=== PATIENT | female | born 1985 | race Asian ===

== ENCOUNTER 2016-07-19 13:07 | Emergency (ER) | payer OTHER ==
[~2016-07-19] VITALS: Wt 70.0 kg
[2016-07-19 15:58] LABS: BASOPHIL # 0.1 10^3/ul (0.0-0.1); BASOPHILS % 0.5 % (0.0-2.0); EOSINOPHILS # 0.1 10^3/ul (0.0-0.5); EOSINOPHILS % 0.6 % (0.0-7.0); HEMATOCRIT 43.6 % (37.0-47.0); HEMOGLOBIN 14.6 g/dl (12.0-16.0); LYMPHOCYTES # 2.1 10^3/ul (0.8-2.9); LYMPHOCYTES % 18.1 % (15.0-51.0); MEAN CORPUSCULAR HEMOGLOBIN 31.2 pg (29.0-33.0); MEAN CORPUSCULAR HGB CONC 33.6 g/dl (32.0-37.0); MEAN CORPUSCULAR VOLUME 92.8 fl (82.0-101.0); MONOCYTE # 0.7 10^3/ul (0.3-0.9); MONOCYTES % 5.9 % (0.0-11.0); NEUTROPHIL # 8.7 10^3/ul (1.6-7.5); NEUTROPHILS % 74.9 % (39.0-77.0); PLATELET COUNT 283 10^3/UL (140-440); RED CELL DISTRIBUTION WIDTH 12.6 % (11.5-14.5); UNCORRECTED WBC 11.7 10^3/ul (4.8-10.8); WHITE BLOOD COUNT 11.7 10^3/ul (4.8-10.8)
[2016-07-19 16:09] LABS: ALBUMIN 4.6 g/dl (3.3-4.9)
[2016-07-19 16:12] LABS: ALBUMIN/GLOBULIN RATIO 1.17; BILIRUBIN,INDIRECT 0.2 mg/dl (0-1.1); BILIRUBIN,TOTAL 0.2 mg/dl (0.2-1.3); CREATININE 0.72 mg/dl (0.44-1.00); TOTAL PROTEIN 8.5 g/dl (6.1-8.1)
[2016-07-19 16:13] LABS: CALCIUM 9.3 mg/dl (8.4-10.2)
[2016-07-19 16:16] LABS: CONDITION 1
[2016-07-19 16:30] LABS: ADD UMIC YES; URINE BILIRUBIN (Dip) NEGATIVE (NEGATIVE); URINE BLOOD (Dip) 3+ (NEGATIVE); URINE GLUCOSE (Dip) NEGATIVE (NEGATIVE); URINE KETONES (Dip) NEGATIVE (NEGATIVE); URINE LEUKOCYTE ESTERASE (Dip) 2+ (NEGATIVE); URINE NITRITE (Dip) NEGATIVE (NEGATIVE); URINE TOTAL PROTEIN (Dip) 2+ (NEGATIVE); URINE UROBILINOGEN (Dip) 0.2 E.U./dL (0.1-1.0)
--- NOTE | 2016-07-19 16:39 | RADRPT ---
PROCEDURE: US OB. CLINICAL INDICATION: Vaginal bleeding and 31-year-old female. Positive test. TECHNIQUE: Transabdominal and transvaginal views of the pelvis are available for review. COMPARISON: No. FINDINGS: Uterus measured 6.96 cm sagittal by 4 cm AP by 4.4 cm transverse. Endometrial thickness is 1 cm. No intrauterine gestation or remnants are identified. There is a 5.35 mm Nabothian cyst on the c ervix. No free fluid is noted in the cul-de-sac. The right ovary measures 2.1 x 1 x 1.2 cm. The left ovary measures 3.2 x 1.6 x 2.1 cm. There is a 1 .5 by 1.6 by 1.2 cm mass in the left ovary. This could be the result of a corpus luteal cyst of pre gnancy. No free intraperitoneal fluid is identified. There is normal blood flow to the right and left ovarie s. IMPRESSION: 1. No intrauterine gestation is identified. Differential diagnosis includes an retained products o f conception, incomplete , early IUP an ectopic . When no IUP is demonstrated, correlation with serial beta HCG is recommended. With a quantitative beta HCG >2000, the differential diagnosis includes spontaneous or ecto pic . Therefore, clinical follow-up is recommended including correlation with serial quant itative beta HCG levels and repeat sonogram with rising levels and/or/or localized or persistent josselyn n. With quantitative beta HCG < 2000, the differential diagnosis includes early normal IVP or spontaneo us or ectopic . Therefore, clinical follow-up is recommended including correlatio n with serial quantitative beta HCG levels and arising levels and / or persistent pain. 2. 1.5 x 1.6 x 1.2 cm complex mass in the left ovary. A corpus luteal cyst of might pres ent this fashion. Follow-up imaging is recommended to ensure this resolves. 3. Findings were phoned to the emergency room to Dr. Jeremy Mosqueda. Physician Oscar Date Time Electronically viewed and signed by Enoch Hutchison Physician on 07/19/2016 16:39 FARHAT
[2016-07-19 16:48] LABS: URINE COLOR RED (YELLOW)
[2016-07-19 16:54] LABS: URINE RBCS >200 /HPF (0)
[2016-07-19 16:55] LABS: BACTERIA,URINE FEW; SQUAMOUS EPITHELIAL CELL,UR FEW
[2016-07-19] MEDS ORDERED: NITR-58 PO (17:12)
[2016-07-19 17:49] VITALS: BP 128/76; PULSE 60; RESP 18; TEMP 98.9
--- NOTE | 2016-07-19 18:20 | ERD ---
ER Documentation Chief Complaint Date/Time DATE: 07/19/16 TIME: 18:18 Chief Complaint VAG BLEED 13 WEEKS HPI Patient is a 31-year-old female with no medical problems who presents with vaginal bleeding. Her symptoms started early this week with brown discharge but then became bright red and today the bleeding was worse. She says that she is about 6 weeks . She is a . She has lower abdominal cramping which he says feels like a period. She does not know the name of her primary doctor but her OB doctor is Dr. Mari she has an appointment scheduled on Thursday. ROS All systems reviewed and are negative except as per history of present illness. Medications Home Meds Active Scripts Nitrofurantoin Monohyd Macrocr* (Macrobid*) 100 Mg Capsr, 100 MG PO BID for 7 Days, CAP Prov:HERON LIMA MD 07/19/16 Allergies Allergies: Coded Allergies: No Known Allergy (Unverified , 07/19/16) PMhx/Soc Medical and Surgical Hx: pt denies Medical Hx, pt denies Surgical Hx History of Surgery: No Anesthesia Reaction: No Hx Neurological Disorder: No Hx Respiratory Disorders: No Hx Cardiac Disorders: No Hx Psychiatric Problems: No Hx Miscellaneous Medical Probl: No Hx Alcohol Use: No Hx Substance Use: No Hx Tobacco Use: No Smoking Status: Never smoker FmHx Family History: No diabetes Physical Exam Vitals Vital Signs Date Time Temp Pulse Resp B/P Pulse Ox O2 Delivery O2 Flow Rate FiO2 07/19/16 17:49 98.9 60 18 128/76 100 Room Air 07/19/16 13:19 98.0 71 18 133/71 99 Physical Exam Const: No acute distress Head: Atraumatic Eyes: Normal Conjunctiva ENT: Normal External Ears, Nose and Mouth. Neck: Full range of motion..~ No meningismus. Resp: Clear to auscultation bilaterally Cardio: Regular rate and rhythm, no murmurs Abd: Soft, non tender, non distended. Normal bowel sounds Skin: No petechiae or rashes Back: No midline or flank tenderness Ext: No cyanosis, or edema Neur: Awake and alert Psych: Normal Mood and Affect Result Diagram: 07/19/16 1533 07/19/16 1533 Results 24 hrs Laboratory Tests Test 07/19/16 15:33 07/19/16 15:42 Alanine Aminotransferase (ALT/SGPT) 24IU/L Albumin 4.6g/dl Albumin/Globulin Ratio 1.17 Alkaline Phosphatase 100IU/L Anion Gap 18 Aspartate Amino Transf (AST/SGOT) 27IU/L Basophils # 0.110^3/ul Basophils % 0.5% Beta HCG, Quantitative 1574.3mIU/ml Blood Urea Nitrogen 15mg/dl Calcium Level 9.3mg/dl Carbon Dioxide Level 26mmol/L Chloride Level 101mmol/L Creatinine 0.72mg/dl Direct Bilirubin 0.00mg/dl Eosinophils # 0.110^3/ul Eosinophils % 0.6% Globulin 3.90g/dl Glucose Level 95mg/dl Hematocrit 43.6% Hemoglobin 14.6g/dl Indirect Bilirubin 0.2mg/dl Lymphocytes # 2.110^3/ul Lymphocytes % 18.1% Mean Corpuscular Hemoglobin 31.2pg Mean Corpuscular Hemoglobin Concent 33.6g/dl Mean Corpuscular Volume 92.8fl Mean Platelet Volume 8.0fl Monocytes # 0.710^3/ul Monocytes % 5.9% Neutrophils # 8.710^3/ul Neutrophils % 74.9% Nucleated Red Blood Cells # 0.010^3/ul Nucleated Red Blood Cells % 0.0/100WBC Platelet Count 01144^3/UL Potassium Level 4.0mmol/L Red Blood Count 4.7010^6/ul Red Cell Distribution Width 12.6% Sodium Level 141mmol/L Total Bilirubin 0.2mg/dl Total Protein 8.5g/dl White Blood Count 11.710^3/ul Urine Bacteria FEW Urine Bilirubin NEGATIVE Urine Clarity BLOODY Urine Color RED Urine Glucose NEGATIVE% Urine Hemoglobin 3+ Urine Ketones NEGATIVE Urine Leukocyte Esterase 2+ Urine Microscopic RBC >200/HPF Urine Microscopic WBC 10-25/HPF Urine Nitrite NEGATIVE Urine Specific [place] 1.010 Urine Squamous Epithelial Cells FEW Urine Total Protein 2+ Urine Urobilinogen 0.2 E.U./dL Urine pH 6.5 Procedures/MDM PROCEDURE: US OB. CLINICAL INDICATION: Vaginal bleeding and 31-year-old female. Positive test. TECHNIQUE: Transabdominal and transvaginal views of the pelvis are available for review. COMPARISON: No. FINDINGS: Uterus measured 6.96 cm sagittal by 4 cm AP by 4.4 cm transverse. Endometrial thickness is 1 cm. No intrauterine gestation or remnants are identified. There is a 5.35 mm Nabothian cyst on the cervix. No free fluid is noted in the cul-de-sac. The right ovary measures 2.1 x 1 x 1.2 cm. The left ovary measures 3.2 x 1.6 x 2.1 cm. There is a 1.5 by 1.6 by 1.2 cm mass in the left ovary. This could be the result of a corpus luteal cyst of . No free intraperitoneal fluid is identified. There is normal blood flow to the right and left ovaries. IMPRESSION: 1. No intrauterine gestation is identified. Differential diagnosis includes an retained products of conception, incomplete , early IUP an ectopic . When no IUP is demonstrated, correlation with serial beta HCG is recommended. With a quantitative beta HCG >2000, the differential diagnosis includes spontaneous or ectopic . Therefore, clinical follow-up is recommended including correlation with serial quantitative beta HCG levels and repeat sonogram with rising levels and/or/or localized or persistent pain. With quantitative beta HCG < 2000, the differential diagnosis includes early normal IVP or spontaneous or ectopic . Therefore, clinical follow-up is recommended including correlation with serial quantitative beta HCG levels and arising levels and / or persistent pain. 2. 1.5 x 1.6 x 1.2 cm complex mass in the left ovary. A corpus luteal cyst of might present this fashion. Follow-up imaging is recommended to ensure this resolves. 3. Findings were phoned to the emergency room to Dr. Heron Lima. Physician Oscar Date Time Electronically viewed and signed by Enoch Hutchison Physician on 07/19/2016 16:39 Patient is a 31-year-old female presents with vaginal bleeding. Her quantitative hCG is 1500 which is below the discriminatory zone of 2000. I spoke with the radiologist and he does not see anything inside the uterus but also does not see any signs of ectopic . The patient does not appear to be clinically in distress or is having significant pain and I believe outpatient management is appropriate at this time. However I told her that she needs to return to the ER for a repeat quantitative hCG and repeat ultrasound in 2 days. She can return sooner for worsening pain or syncope. The patient is Rh+ and does not require RhoGam. At this point I doubt appendicitis, cholecystitis, pink otitis, or bowel obstruction. Her urinalysis does show cystitis and I will treat her with Macrobid for a one-week course. She was provided with copies of her laboratory studies and ultrasound report prior to discharge. Departure Diagnosis: Primary Impression: Threatened Additional Impressions: Vaginal bleeding Cystitis Condition: Fair Patient Instructions: Cystitis, Possible Miscarriage (Threatened ) Referrals: CHANTE MARI MD Additional Instructions: Call your primary care doctor TOMORROW for an appointment during the next 1-2 days.See the doctor sooner or return here if your condition worsens before your appointment time. HERON LIMA MD Jul 19, 2016 18:20
== END 2016-07-19 17:50 | disposition home or self-care (01) ==
LOC: FTE 13:07
DX: O20.0 Threatened abortion (principal); O23.11 Infections of bladder in pregnancy, first trimester
CPT/HCPCS: 76801; 76817; 80053; 81001; 81003; 84702; 85025; 86900; 86901

== ENCOUNTER 2016-07-21 07:03 | Emergency (ER) | payer OTHER ==
[~2016-07-21] VITALS: Wt 42.0 kg
[~2016-07-21 07:03] MED LIST: NITR-58 PO
[2016-07-21 08:15] LABS: BASOPHILS % 0.4 % (0.0-2.0); EOSINOPHILS # 0.1 10^3/ul (0.0-0.5); HEMATOCRIT 42.9 % (37.0-47.0); HEMOGLOBIN 14.7 g/dl (12.0-16.0); LYMPHOCYTES # 1.4 10^3/ul (0.8-2.9); LYMPHOCYTES % 20.1 % (15.0-51.0); MEAN CORPUSCULAR HEMOGLOBIN 31.4 pg (29.0-33.0); MEAN CORPUSCULAR HGB CONC 34.2 g/dl (32.0-37.0); MEAN CORPUSCULAR VOLUME 91.6 fl (82.0-101.0); MEAN PLATELET VOLUME 7.8 fl (7.4-10.4); MONOCYTE # 0.5 10^3/ul (0.3-0.9); MONOCYTES % 7.5 % (0.0-11.0); NEUTROPHIL # 4.9 10^3/ul (1.6-7.5); PLATELET COUNT 285 10^3/UL (140-440); RED BLOOD COUNT 4.68 10^6/ul (4.20-5.40); RED CELL DISTRIBUTION WIDTH 12.5 % (11.5-14.5); UNCORRECTED WBC 6.9 10^3/ul (4.8-10.8); WHITE BLOOD COUNT 6.9 10^3/ul (4.8-10.8)
[2016-07-21 08:22] LABS: CONDITION 1
[2016-07-21 08:27] LABS: ADD UMIC YES; URINE BILIRUBIN (Dip) NEGATIVE (NEGATIVE); URINE BLOOD (Dip) 2+ (NEGATIVE); URINE COLOR LT. YELLOW (YELLOW); URINE GLUCOSE (Dip) NEGATIVE (NEGATIVE); URINE KETONES (Dip) NEGATIVE (NEGATIVE); URINE LEUKOCYTE ESTERASE (Dip) NEGATIVE (NEGATIVE); URINE NITRITE (Dip) NEGATIVE (NEGATIVE); URINE TOTAL PROTEIN (Dip) NEGATIVE (NEGATIVE); URINE UROBILINOGEN (Dip) 0.2 E.U./dL (0.1-1.0)
[2016-07-21 08:46] LABS: BACTERIA,URINE FEW; SQUAMOUS EPITHELIAL CELL,UR FEW
--- NOTE | 2016-07-21 08:47 | RADRPT ---
PROCEDURE: US Pelvis. CLINICAL INDICATION: vaginal bleeding TECHNIQUE: Multiple sonographic images of the pelvis were obtained utilizing a transabdominal and endovaginal technique. The images were reviewed on a PACS workstation. COMPARISON: None. FINDINGS: The uterus is normal in size and demonstrates a normal appearance of the myometrium. The endometria l stripe is homogeneous in appearance and has the thickness of 8 mm. There is a questionable tiny sonolucent structure within the endometrium, measuring 2 mm. The right ovary was not visualized. The left ovary measures 3.0 x 1.5 x 2.6 cm. There is a complex structure in the left ovary measurin g 1.5 cm with a focal echogenic areas measuring 3 mm. There is a small amount of free fluid in the cul-de-sac. RPTAT: AA IMPRESSION: No definite intrauterine gestation visualized. Differential diagnosis includes early , missed or ectopic . Follow-up ultrasound and HCG levels is recommended. Complex mass in the left ovary may represent a hemorrhagic cyst, however, a dermoid is not excluded and follow-up ultrasound is recommended. Small amount of free fluid in the cul-de-sac. .Fitz Orosco MD, MD Date Time Electronically viewed and signed by .Fitz Orosco MD, on 07/21/2016 08:47 .S/
--- NOTE | 2016-07-21 09:07 | ERD ---
ER Documentation Chief Complaint Date/Time DATE: 07/21/16 TIME: 09:05 Chief Complaint vag bleed follow up, seen 2 days ago. needs reevaluate for bleeding HPI The patient is a 31-year-old female who presents for a recheck of her labs and ultrasound, she was seen here 2 days ago and was diagnosed with threatened . She reports very mild uterine cramping and scant bleeding. She denies heavy bleeding, or passing clots. She denies fever, chills, nausea, vomiting, diarrhea, abdominal pain, dizziness, lightheadedness, dysuria, flank pain, shortness of breath, dyspnea on exertion, or any other symptoms or concerns. ROS All systems reviewed and are negative except as per history of present illness. Medications Home Meds Active Scripts Nitrofurantoin Monohyd Macrocr* (Macrobid*) 100 Mg Capsr, 100 MG PO BID for 7 Days, CAP Prov:HERON LIMA MD 07/19/16 Allergies Allergies: Coded Allergies: No Known Allergy (Unverified , 07/19/16) PMhx/Soc Medical and Surgical Hx: pt denies Medical Hx, pt denies Surgical Hx History of Surgery: No Anesthesia Reaction: No Hx Neurological Disorder: No Hx Respiratory Disorders: No Hx Cardiac Disorders: No Hx Psychiatric Problems: No Hx Miscellaneous Medical Probl: No Hx Alcohol Use: No Hx Substance Use: No Hx Tobacco Use: No Smoking Status: Never smoker Physical Exam Vitals Vital Signs Date Time Temp Pulse Resp B/P Pulse Ox O2 Delivery O2 Flow Rate FiO2 07/21/16 07:11 97.5 79 20 140/85 100 Physical Exam INITIAL VITAL SIGNS: Reviewed by me GENERAL: Alert. Well developed and well nourished. No respiratory distress HEAD: Head is normocephalic. Atraumatic. EYES: EOMI. No scleral icterus. No conjunctival injection. ENT: External ears, nose, and mouth normal. Nasal passages patent. Moist mucous membranes. NECK: Supple. Full range of motion. Trachea midline. No meningismus. RESPIRATORY: No tachypnea. Clear to auscultation bilaterally. No wheezing, rales , or rhonchi. CV: Regular rate and rhythm. No murmurs, rubs, or gallops ABDOMEN: Soft, non-distended, non-tender. No guarding. No rebound. No masses. Bowel sounds normal in all quadrants. BACK: No CVA tenderness. Full ROM. EXTREMITIES: No obvious deformity. No clubbing or cyanosis. No edema. SKIN: Warm and dry. No diaphoresis. No obvious rashes or lesions. NEUROLOGIC: Alert and oriented x 3. Appropriate. Face is symmetric. Speech is normal. Moves all extremities equally. Result Diagram: 07/21/16 0800 Results 24 hrs Laboratory Tests Test 07/21/16 07:50 07/21/16 08:00 Urine Bacteria FEW Urine Bilirubin NEGATIVE Urine Clarity CLEAR Urine Color LT. YELLOW Urine Glucose NEGATIVE% Urine Hemoglobin 2+ Urine Ketones NEGATIVE Urine Leukocyte Esterase NEGATIVE Urine Microscopic RBC 2-5/HPF Urine Microscopic WBC NONE SEEN/HPF Urine Nitrite NEGATIVE Urine Specific [place] <=1.005 Urine Squamous Epithelial Cells FEW Urine Total Protein NEGATIVE Urine Urobilinogen 0.2 E.U./dL Urine pH 6.5 Basophils # 0.010^3/ul Basophils % 0.4% Beta HCG, Quantitative 366.2mIU/ml Eosinophils # 0.110^3/ul Eosinophils % 1.0% Hematocrit 42.9% Hemoglobin 14.7g/dl Lymphocytes # 1.410^3/ul Lymphocytes % 20.1% Mean Corpuscular Hemoglobin 31.4pg Mean Corpuscular Hemoglobin Concent 34.2g/dl Mean Corpuscular Volume 91.6fl Mean Platelet Volume 7.8fl Monocytes # 0.510^3/ul Monocytes % 7.5% Neutrophils # 4.910^3/ul Neutrophils % 71.0% Nucleated Red Blood Cells # 0.010^3/ul Nucleated Red Blood Cells % 0.0/100WBC Platelet Count 58431^3/UL Red Blood Count 4.6810^6/ul Red Cell Distribution Width 12.5% White Blood Count 6.910^3/ul [place] [id number] Radiology Main Line: [phone] DIAGNOSTIC IMAGING REPORT Patient: ERLINDA CAPONE : 1985 Age: 31 Sex: F MR #: [id number] DOS: 07/21/16 0746 Ordering MD: SHIRA BRIDGES NP Location: [facility] Room/Bed: PROCEDURE: US Pelvis. CLINICAL INDICATION: vaginal bleeding TECHNIQUE: Multiple sonographic images of the pelvis were obtained utilizing a transabdominal and endovaginal technique. The images were reviewed on a PACS workstation. COMPARISON: None. FINDINGS: The uterus is normal in size and demonstrates a normal appearance of the myometrium. The endometrial stripe is homogeneous in appearance and has the thickness of 8 mm. There is a questionable tiny sonolucent structure within the endometrium, measuring 2 mm. The right ovary was not visualized. The left ovary measures 3.0 x 1.5 x 2.6 cm. There is a complex structure in the left ovary measuring 1.5 cm with a focal echogenic areas measuring 3 mm. There is a small amount of free fluid in the cul-de-sac. RPTAT: AA IMPRESSION: No definite intrauterine gestation visualized. Differential diagnosis includes early , missed or ectopic . Follow-up ultrasound and HCG levels is recommended. Complex mass in the left ovary may represent a hemorrhagic cyst, however, a dermoid is not excluded and follow-up ultrasound is recommended. Small amount of free fluid in the cul-de-sac. .Fitz Orosco MD, MD Date Time Electronically viewed and signed by .Fitz Orosco MD, MD on 07/21/2016 08: 47 .S/ CC: SHIRA BRIDGES, PRADIP Procedures/MDM Nursing Notes Reviewed [facility] EMERGENCY DEPARTMENT COURSE / MEDICAL DECISION MAKING: The patient comes to the ED secondary to recheck for vaginal bleeding while . Was last seen here 2 days ago. Differential diagnosis upon initial evaluation includes but is not limited to: Threatened , incomplete , intrauterine , molar , ectopic , anemia, and others. The patient denied any pain at this time, and she also denied nausea. As such, she was not treated with any medications in the department. Ultrasound per radiology report: IMPRESSION: No definite intrauterine gestation visualized. Differential diagnosis includes early , missed or ectopic . Follow-up ultrasound and HCG levels is recommended. Complex mass in the left ovary may represent a hemorrhagic cyst, however, a dermoid is not excluded and follow-up ultrasound is recommended. CBC: no e/o of systemic infection or severe anemia Beta hC.2 Urine: no e/o acute infection or hematuria Otherwise within normal limits, unremarkable, or as documented above. Beta HCG on 07/19/16 [id number] The case was discussed with supervising physician Dr. Johansen. It was agreed that the patient is an appropriate candidate for outpatient management and follow-up at this time. The patient was well-appearing, afebrile, no tachycardia , with a benign physical exam. She had a benign abdominal exam and denied any pain at this time. Her CBC showed no evidence of anemia. Final impression: Spontaneous Based on patient's history of present illness and physical examination the decision was made to discharge. There is no evidence of life threatening injuries or illnesses at this time. As her beta hCG is decreasing markedly, I have low suspicion at this time for molar and ectopic . On re-examination, patient resting in no distress, stable vital signs, reports feeling better and safe for discharge with outpatient follow up with her [facility] LUNCHROOM CHECKER in a few days. The patient states that she has an appointment with her CAFETERIA OR LUNCHROOM CHECKER on 07/23/16. He stated that she will keep this appointment and follow- up as directed. Patient given return precautions. She will return here immediately for any new or worsening symptoms. She was given a copy of her ultrasound and lab results. All of her questions and concerns were addressed prior to discharge. She agrees with the plan of care. I instructed her to continue taking her vitamins. I instructed her that she could take Tylenol [id number] for any cramping or discomfort should she experience this in the next few days. She verbalized understanding and agreed. SHIRA BRIDGES NP Jul 21, 2016 09:07
== END 2016-07-21 09:44 | disposition home or self-care (01) ==
LOC: FTE 07:03
DX: O03.9 Complete or unspecified spontaneous abortion without complication (principal)
CPT/HCPCS: 36415; 76801; 76817; 81001; 81003; 84702; 85025

== ENCOUNTER 2017-05-11 04:30 | Inpatient (IN) | payer OTHER ==
[~2017-05-11] VITALS: Ht 147.3 cm; Wt 49.2 kg
[2017-05-11 05:03] VITALS: Ht 147.3 cm; Wt 49.2 kg
[2017-05-11 05:04] VITALS: BP 133/86; PULSE 72; RESP 18
[2017-05-11] MEDS ORDERED: PNV11TAB PO (05:06)
[2017-05-11] MEDS ORDERED: METHYLERGONOVINE 0.2 MG INJ IM PRN ×2 (05:30→15:30)
[2017-05-11] MEDS ORDERED: OXYTOCIN 30 UNITS/LR 500 ML IV SCH ×6 (05:30→15:02)
[2017-05-11] MEDS ORDERED: OXYTOCIN 30 UNITS/LR 500 ML IV PRN ×2 (05:30→15:30)
[2017-05-11] MEDS ORDERED: MISOPROSTOL 200 MCG TAB PR PRN ×2 (05:30→15:30)
[2017-05-11] MEDS ORDERED: CARBOPROST 250 MCG INJ IM PRN ×2 (05:30→15:30)
[2017-05-11] MEDS ORDERED: IBUPROFEN 600 MG TAB PO PRN ×2 (05:30→09:30)
[2017-05-11] MEDS ORDERED: LIDOCAINE 1% (MPF) 30 ML INJ INJ PRN (05:30)
[2017-05-11] MEDS ORDERED: HYDROCODONE/APAP (5/325) TAB PO PRN (05:30)
[2017-05-11] MEDS ORDERED: BUTORPHANOL 2 MG INJ IV PRN ×2 (05:30)
[2017-05-11] MEDS: LACTATED RINGER'S 1,000 ML IV SCH ×3 (06:09→12:23)
[2017-05-11 06:43] LABS: BASOPHIL # 0.1 10^3/ul (0.0-0.1); BASOPHILS % 0.4 % (0.0-2.0); EOSINOPHILS # 0.1 10^3/ul (0.0-0.5); EOSINOPHILS % 0.6 % (0.0-7.0); HEMATOCRIT 41.4 % (37.0-47.0); HEMOGLOBIN 14.3 g/dl (12.0-16.0); LYMPHOCYTES # 1.8 10^3/ul (0.8-2.9); LYMPHOCYTES % 15.2 % (15.0-51.0); MEAN CORPUSCULAR HGB CONC 34.5 g/dl (32.0-37.0); MEAN PLATELET VOLUME 11.7 fl (7.4-10.4); MONOCYTE # 0.7 10^3/ul (0.3-0.9); MONOCYTES % 6.2 % (0.0-11.0); PLATELET COUNT 229 10^3/UL (140-415); RED BLOOD COUNT 4.76 10^6/ul (4.20-5.40); RED CELL DISTRIBUTION WIDTH 12.4 % (11.5-14.5); WHITE BLOOD COUNT 11.8 10^3/ul (4.8-10.8)
[2017-05-11 06:51] LABS: INR 0.82; PROTIME 11.3 Sec (11.9-14.9); PT RATIO 0.9
[2017-05-11 07:02] LABS: ADD UMIC YES; UR ASCORBIC ACID NEGATIVE (NEGATIVE); UR BACTERIA FEW /HPF (NONE SEEN); UR BILIRUBIN (Dip) NEGATIVE (NEGATIVE); UR BLOOD (Dip) 3+ mg/dL (NEGATIVE); UR CLARITY SLIGHTLY CLOUDY (CLEAR); UR COLOR STRAW (YELLOW); UR GLUCOSE (Dip) NEGATIVE (NEGATIVE); UR KETONES (Dip) NEGATIVE (NEGATIVE); UR LEUKOCYTE ESTERASE (Dip) 1+ Leu/ul (NEGATIVE); UR NITRITE (Dip) NEGATIVE (NEGATIVE); UR RBC 5 /HPF (0-5); UR SPECIFIC GRAVITY (Dip) 1.003 (1.003-1.030); UR SQUAMOUS EPITHELIAL CELL FEW /HPF (FEW); UR TOTAL PROTEIN (Dip) NEGATIVE (NEGATIVE); UR UROBILINOGEN (Dip) NEGATIVE (NEGATIVE)
--- NOTE | 2017-05-11 07:15 | TRIAGE ---
OB Triage Datetime Report Generated by CPN: 05/11/2017 07:15 Datetime: 05/11/2017 06:25 Stage of : Labor Labor Evaluation Frequency: IRREGULAR Monitor Mode: External Duration (sec)2399: 40-70 Quality: Mild Resting Tone [place]: Relaxed Heart Rate FHR Baseline Rate: 135 Monitor Mode: External US Variability: Moderate 6-25 bpm Accelerations: 15X15 Decelerations: None Category: Category I Datetime: 05/11/2017 06:18 Vaginal Exam Dilatation (cms): 3.5 Effacement (%): 90 Station: -1 Exam By: Elissa HOLT Vaginal Bleeding: None Cervix, Consistency: Soft Cervix, Position: Posterior Presentation 'A': Cephalic Datetime: 05/11/2017 05:30 Stage of : OB Triage Labor Evaluation Frequency: 3-8 Monitor Mode: External Duration (sec)2399: 40-80 Quality: Mild Resting Tone [place]: Relaxed Heart Rate FHR Baseline Rate: 135 Monitor Mode: External US Variability: Moderate 6-25 bpm Accelerations: 15X15 Decelerations: None Category: Category I Datetime: 05/11/2017 05:16 Stage of : OB Triage Datetime: 05/11/2017 05:10 Membrane Status: Ruptured Membranes Rupture Method: Spontaneous Amniotic Fluid Color: Clear Amniotic Fluid Amount: Small Amniotic Fluid Odor: None Nitrazine: Positive Datetime: 05/11/2017 05:05 Stage of : OB Triage Datetime: 05/11/2017 05:00 Assessment Type: Triage Maternal Assessment Level of Consciousness: Fully Conscious DTR's/Clonus: DTRs 2+; No Clonus Headache: Denies Blurred Vision: No Respiratory Effort: Unlabored Breath Sounds, Left: Clear and Equal Breath Sounds, Right: Clear and Equal Nausea/Vomiting: Denies RUQ Epigastric Pain: Denies Lower Extremities Edema: None Degree: None Upper Extremities Edema: None Degree: None Facial Edema: None Fall Risk Assessment History of Falling: (0) No Secondary Diagnosis: (0) No Ambulatory Aid: (0) Bedrest/Nurse Assist IV Therapy: (0) No Gait: (0) Normal/Bedrest/Immobile Mental Status: (0) Oriented to Own Ability Fall Score: 0 Fall Risk Score Definition: No Risk: No action required Datetime: 05/11/2017 04:58 Time of Arrival: 05/11/2017 04:26 EGA: 37.4 Arrived By: Wheelchair Arrived From: Home Chief Complaint: leaking since 314 Movement: Present Contractions: Irregular Rupture of Membranes: Unsure Vaginal Bleeding: None Vaginal Discharge: Denies Recent Sexual Intercouse: Denies Abdominal Trauma: Not Applicable Patient Complaints: Contractions; Back Pain Initial Plan: VS, EFM, CALL MD Datetime: 05/11/2017 04:49 Monitor Mode: External Contraction Comments: APPLIED Monitor Mode: External US Comments: APPLIED
[2017-05-11 07:19] LABS: ALBUMIN 4.1 g/dl (3.3-4.9); ALBUMIN/GLOBULIN RATIO 1.07; BILIRUBIN,INDIRECT 0.3 mg/dl (0-1.1); BILIRUBIN,TOTAL 0.3 mg/dl (0.2-1.3); CALCIUM 9.3 mg/dl (8.4-10.2); CREATININE 0.69 mg/dl (0.44-1.00); TOTAL PROTEIN 7.9 g/dl (6.1-8.1)
[2017-05-11] MEDS ORDERED: FENTAnyl 2MCG/ML-ROPIV 0.2% 100 ML ONE (08:01)
[2017-05-11] MEDS ORDERED: EPHEDrine SULFATE 50 MG/5 ML SYG ONE (08:10)
[2017-05-11] MEDS ORDERED: TERBUTALINE 1 ML ONE (09:34)
[2017-05-11] MEDS ORDERED: TERBUTALINE 1 MG/ML INJ SC ONE (10:00)
[2017-05-11] MEDS ORDERED: NALOXONE (0.4 MG/ML) INJ IV PRN (10:30)
[2017-05-11] MEDS ORDERED: ONDANSETRON 4 MG INJ IV PRN (10:30)
[2017-05-11] MEDS ORDERED: FENTAnyl 2MCG/ML-ROPIV 0.2% 100 ML BAG EPI SCH (10:30)
[2017-05-11] MEDS ORDERED: DIPHENHYDRAMINE 50 MG INJ IV PRN (10:30)
[2017-05-11 15:00] VITALS: BP 106/59; PULSE 86; RESP 18
[2017-05-11] MEDS ORDERED: LACTATED RINGER'S 1,000 ML IV* SCH (15:02)
--- NOTE | 2017-05-11 15:08 | LDN ---
Date/Time of Note Date/Time of Note DATE: 05/11/17 TIME: 15:04 Delivery Summary Vacuum assisted vaginal delivery for deep variable decels over one contraction and 3 pushes of a viable baby boy weighing 2330 grams, or 5# 2 oz, 18" long, and with Apgars of 9/9. Weeks of Gestation 37w 4d Assisted Vaginal Delivery: Vacuum Placenta Delivered: Spontaneously Meconium: none Episiotomy: No Perineal laceration: 2 Laceration repair: Second degree perineal laceration repaired with 2-0 chromic. Anesthesia type: Epidural Estimated blood loss: 300 Sponge & Needle done & correct: Yes All needle counts correct: Yes Any foreign bodies felt in the: No (vagina) Problems: Delivery Information Sex Sex: male Apgars 1 Minute: 9 5 Minute: 9 Suctioning Nose & mouth suctioned at mariia: No Delee suction performed: No Umbilical Cord Umbilical cord with: 3 Vessels Cord presentations: no nuchal cord Cord Blood was obtained: Yes Mother & Baby Disposition Disposition Mom & Baby to Maternity; Good: Yes Baby to NICU: No CHANTE MARI MD May 11, 2017 15:08
--- NOTE | 2017-05-11 15:10 | HP ---
Date/Time of Note Date/Time of Note DATE: 05/11/17 TIME: 15:08 OB - History Hx of Present Free Text/Dictation 31 y.o. A1 with an IUP at 37w 4d came in with ruptured membranes and was 4 cm. Chief Complaint: SROM. Estimated Due Date: May 28, 2017 : 2 Para: 0 Spontaneous : 1 Care: Good Care Ultrasounds: Normal mid trimester US Obstetrical Complications: None Medical Complications: None Past Family/Social History * Past Medical, Surgical, Family and Obstetric Histories reviewed from chart. Blood Type: O+ Rubella: immune RPR/VDRL: Negative GBS Status: Negative HBsAG: Negative OB Admission Exam Vital Signs Vital Signs Vital Signs Date Time Temp Pulse Resp B/P Pulse Ox O2 Delivery O2 Flow Rate FiO2 05/11/17 05:04 97.7 72 18 133/86 Room Air Physical Exam HEENT: WNL Heart: Rhythm Normal Lungs: Clear Abdomen: WNL Extremities: Normal Reflexes: Normal Cervical Dilatation: 4cm Effacement: 100% Membranes: Ruptured Amniotic Fluid: Clear Heart Rate: 140's Accelerations: Accelerations Present Decelerations: No Decelerations Varibility: Moderate Contractions on Admission: 6-10 Minutes Apart Last 72 hours Lab Results CBC & BMP 05/11/17 06:09 Liver Function Test 05/11/17 06:09 Alanine Aminotransferase (ALT/SGPT) 27 Albumin 4.1 Alkaline Phosphatase 230 H Aspartate Amino Transf (AST/SGOT) 39 Direct Bilirubin 0.00 Total Protein 7.9 OB Assessment/Plan Reason for admission: rupture of membranes Plan: Expectant Management CHANTE MARI MD May 11, 2017 15:10
[2017-05-11] MEDS ORDERED: BENZOCAINE 20% 56 ML SPRAY TOP PRN (15:30)
[2017-05-11] MEDS ORDERED: OXYCODONE/ASPIRIN (4.88/325) TAB PO PRN (15:30)
[2017-05-11] MEDS ORDERED: LANOLIN 7 GM TUBE TOP PRN (15:30)
[2017-05-11 16:00] VITALS: BP 110/63; PULSE 98; RESP 18
[2017-05-11] MEDS: IBUPROFEN 600 MG TAB PO SCH ×2 (17:31→23:40)
[2017-05-11 19:49] VITALS: BP 113/56; PULSE 54; RESP 18
[2017-05-12 04:00] VITALS: BP 107/72; PULSE 81; RESP 19
[2017-05-12] MEDS: IBUPROFEN 600 MG TAB PO SCH ×4 (06:00→23:54)
[2017-05-12 08:00] VITALS: BP 114/78; PULSE 80; RESP 18
[2017-05-12 10:49] LABS: BASOPHILS % 0.2 % (0.0-2.0); EOSINOPHILS % 0.2 % (0.0-7.0); HEMATOCRIT 31.5 % (37.0-47.0); HEMOGLOBIN 10.7 g/dl (12.0-16.0); LYMPHOCYTES # 1.2 10^3/ul (0.8-2.9); LYMPHOCYTES % 7.9 % (15.0-51.0); MEAN CORPUSCULAR HEMOGLOBIN 30.1 pg (29.0-33.0); MEAN CORPUSCULAR VOLUME 88.7 fl (82.0-101.0); MEAN PLATELET VOLUME 11.2 fl (7.4-10.4); MONOCYTE # 0.6 10^3/ul (0.3-0.9); MONOCYTES % 3.8 % (0.0-11.0); NEUTROPHIL # 13.5 10^3/ul (1.6-7.5); NEUTROPHILS % 87.3 % (39.0-77.0); PLATELET COUNT 212 10^3/UL (140-415); RED BLOOD COUNT 3.55 10^6/ul (4.20-5.40); RED CELL DISTRIBUTION WIDTH 12.8 % (11.5-14.5); WHITE BLOOD COUNT 15.5 10^3/ul (4.8-10.8)
[2017-05-12 16:00] VITALS: BP 116/78; PULSE 63; RESP 18
[2017-05-12 20:00] VITALS: BP 136/83; PULSE 76; RESP 18
--- NOTE | 2017-05-12 22:06 | QN ---
Documentation Comment PPD #1 Pt is doing well with minimal bleeding. Is but the baby needed a nipple shield but is doing better now. The baby's BS was staying low so pt is supplementing with formula. The baby is also Coomb's positive. Pt is just starting to get some colostrum. T= 97.8 BP 136/83 Fundus is firm. Lochia minimal. Ext NT, no edema. WBC 15.5 Hgb 10.7 Plts 212K. P: continue care and plan d/c tomorrow. CHANTE MARI MD May 12, 2017 22:06
[2017-05-13 04:00] VITALS: BP 116/72; PULSE 61; RESP 18
[2017-05-13] MEDS: IBUPROFEN 600 MG TAB PO SCH ×2 (06:00→12:11)
[2017-05-13 08:40] VITALS: BP 111/74; PULSE 72; RESP 20
[2017-05-13] MEDS ORDERED: DIPHTH/TET/ACEL PERTUSS (ADULT) 0.5 ML VIAL IM* ONE (09:00)
--- NOTE | 2017-05-13 13:29 | PD.PPDC ---
DIRECTOR OF STATE Discharge Instruction Condition Patient Condition: Good Diet Diet: Resume Regular Diet Activity/Restrictions Activity: Normal Activity May Shower Restrictions: No Sexual Activity Nothing in the Vagina No [place] No Tampons, douche Follow-up Follow-up with Physician: 6, Week/Weeks Return to clinic for PROFESSOR OF GEOGRAPHY Instructions: Fever greater than 101 Chills Worsening abdominal pain Excessive Vaginal Bleeding OB Instructions: Breast Tenderness Depression CHANTE MARI MD May 13, 2017 13:29
--- NOTE | 2017-05-13 13:32 | DS ---
Date/Time of Note Date/Time of Note DATE: 05/13/17 TIME: 13:31 Obstetrical Discharge Record Final Diagnosis Final Diagnosis: Term delivered Vaginal Delivery Obstetrical Delivery: Spontaneous, Laceration, Repaired Complications Augmentation: No Induction: No Condition on Discharge Physical Assessment Last Vitals: T=98.2 BP 111/74 Voiding: Yes Bowel Movement: Yes Breast: Filling Fundus: Firm Episiotomy: Intact Calf Tenderness: No Patient Condition: Good CHANTE MARI MD May 13, 2017 13:32
== END 2017-05-13 16:00 | disposition home or self-care (01) | DRG 775 ==
LOC: OBT 04:30 → L-D 04:30 → OBT 05:34 → L-D 05:34 → PP1 15:00
PROVIDERS: ADMIT Obstetrics & Gynecology; ATTEND Obstetrics & Gynecology
PROC: 10E0XZZ Delivery of Products of Conception, External Approach (ICD-10-PCS; principal; 2017-05-11)
PROC: 0KQM0ZZ Repair Perineum Muscle, Open Approach (ICD-10-PCS; 2017-05-11)
PROC: 3E033VJ Introduction of Other Hormone into Peripheral Vein, Percutaneous Approach (ICD-10-PCS; 2017-05-11)
DX: O70.1 Second degree perineal laceration during delivery (principal); Z37.0 Single live birth; Z3A.37 37 weeks gestation of pregnancy
CPT/HCPCS: 62319; 80053; 81001; 84560; 85025; 85610; 85730; 86592; 86900; 86901; 87340; 90715; G0463; J0595; J2590; J3010; J3105; J7120